=== PATIENT | female | born 1995 | race American Indian/Alaskan Native ===

== ENCOUNTER 2018-02-27 22:40 | Emergency (ER) | payer OTHER ==
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
[2018-02-28] MEDS ORDERED: FLEXERIL ONE (02:32)
[2018-02-28] MEDS ORDERED: NORCO 7.5/325 ONE (02:33)
[2018-02-28] MEDS ORDERED: MOTRIN ONE (02:33)
[2018-02-28] MEDS ORDERED: MOTRIN PO ONE (02:40)
[2018-02-28] MEDS ORDERED: NORCO 7.5/325 PO ONE (02:40)
[2018-02-28] MEDS ORDERED: FLEXERIL PO ONE (02:41)
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
[2018-02-28] MEDS ORDERED: TRIPLE ANTIBIOTIC TP ONE (05:20)
[2018-02-28 06:32] VITALS: BP 114/78
== END 2018-02-28 06:30 | disposition home or self-care (01) ==
LOC: ED 22:40
DX: S80.12XA Contusion of left lower leg, initial encounter (principal); S80.11XA Contusion of right lower leg, initial encounter; M62.830 Muscle spasm of back; M54.5 Low back pain; M79.642 Pain in left hand; R07.89 Other chest pain; R10.9 Unspecified abdominal pain; Z91.040 Latex allergy status; V43.52XA Car driver injured in collision with other type car in traffic accident, initial encounter; W22.19XA Striking against or struck by other automobile airbag, initial encounter; Y93.89 Activity, other specified; Y99.8 Other external cause status; Y92.410 Unspecified street and highway as the place of occurrence of the external cause